=== PATIENT | male | born 1990 | race Two or more races ===

== ENCOUNTER 2024-08-12 12:14 | Emergency (ER) | payer SELFPAY ==
[2024-08-12] MEDS ORDERED: Acetaminophen 500 MG TAB ONE (13:24)
== END 2024-08-12 14:42 | disposition home or self-care (01) ==
LOC: ERS 12:14
DX: Z46.6 Encounter for fitting and adjustment of urinary device (principal); I10 Essential (primary) hypertension
CPT/HCPCS: 99283